=== PATIENT | female | born 1985 | race Two or more races ===

== ENCOUNTER 2016-05-21 16:10 | Emergency (ER) | payer SELFPAY ==
[~2016-05-21 16:10] MED LIST: 24 HOUR ALLER15.8 ML; ALPRAZOLAM0.5 M3 PO; AMOX TR-K CLV1 EAC4 PO; AMOXICILLIN500 M2 PO; CARAFATE1 G2 PO; EXCEDRIN MIGRA1 EAC3 PO; FISH OIL 11000 MG/CA PO; FLONASE ALLERG9.9 ML; GLUCOPHAGE1000 MG PO; GLUCOPHAGE500 M3 PO; GLUCOPHAGE500 MG PO; GLUCOPHAGE850 M1 PO; IBUPROFEN600 MG PO; KEFLEX500 MG PO; KLONOPIN0.5 MG PO; LANTUS100 UNITS/ SC; LEVAQUIN500 M1 PO; LEVAQUIN750 M1 PO; LEVOTHYROXINE75 MC3 PO; LISINOPRIL10 M1 PO; LOVASTATIN20 M2 PO; METFORMIN HCL500 M2 PO; NAPROXEN375 M1 PO; OMEPRAZOLE20 M3 PO; ONDANSETRON HCL8 M1 PO; PREDNISONE20 M1 PO; PRENATAL MULTI1 EAC3 PO; PRINIVIL10 M1 PO; PROGESTERONE200 M1 PO; SYNTHROID75 MC1 PO; [UNRECOGNIZED DRUG - REMARK]
[2016-05-21] MEDS ORDERED: PENICILLIN V P250 M1 PO (19:24)
[2016-05-21] MEDS ORDERED: ASPIRIN81 M1 PO (19:24)
[2016-05-21 20:32] LABS: BASO % 0.2 % (0-2); EOS % 1.6 % (0-7); EOSINOPHIL ABSOLUTE COUNT 0.2 tho/cmm (0.0-0.7); HCT-HEMATOCRIT 40.9 % (34.0-49.0); HGB-HEMOGLOBIN 13.8 gm/dl (12.0-15.5); IMMATURE GRANULOCYTES ABSOLUTE 0.02 tho/cmm (0-0.03); IMMATURE GRANULOCYTES PERCENT 0.2 % (0-0.3); LYMPH % 27.6 % (20-45); LYMPH ABSOLUTE COUNT 2.7 tho/cmm (0.8-4.5); MCH (MEAN CORPUSCULAR HGB) 28.3 pg (28.0-32.0); MCHC MEAN CORPUSCULAR HGB CONC 33.7 % (32.0-36.0); MEAN PLATELET VOLUME 9.7 cmc (9.4-12.4); MONO % 5.1 % (0-12); MONOCYTE ABSOLUTE COUNT 0.5 tho/cmm (0.0-1.2); NEUTROPHIL ABSOLUTE COUNT 6.4 tho/cmm (1.6-8.0); NEUTROPHIL-AUTOMATED 6.4 tho/cmm (1.6-8.0); NEUTROPHILS % 65.3 % (40-80); PLATELET COUNT 304 tho/cmm (150-450); RED BLOOD COUNT 4.87 mil/cmm (4.00-5.20); RED CELL DISTRIBUTION WIDTH 13.3 % (12.4-16.4); WHITE BLOOD COUNT 9.7 tho/cmm (4.0-10.0)
[2016-05-21 20:48] LABS: PREGNANCY-SERUM POSITIVE (NEGATIVE)
[2016-05-21 20:49] LABS: ANION GAP 10 mmol/L (0-20); BLOOD UREA NITROGEN 8 mg/dl (6-24); CALCIUM 8.9 mg/dl (8.5-10.5); CARBON DIOXIDE-VENOUS 29 mmol/L (22-32); CHLORIDE 105 mmol/l (96-110); CREATININE 0.61 mg/dl (0.50-1.10); GLUCOSE 136 mg/dL (70-110); POTASSIUM 4.2 mmol/L (3.7-5.1); SODIUM 140 mmol/L (135-145); eGFR VALUE FOR BLACK >90 mL/Min
== END 2016-05-21 21:11 ==
LOC: EDMED 16:10
PROVIDERS: Emergency Medicine
DX: O99.89 Other specified diseases and conditions complicating pregnancy, childbirth and the puerperium (principal); R51 Headache; O24.919 Unspecified diabetes mellitus in pregnancy, unspecified trimester; O16.9 Unspecified maternal hypertension, unspecified trimester
CPT/HCPCS: J1200; J2765